=== PATIENT | male | born 1990 | race Two or more races ===

== ENCOUNTER 2018-02-03 08:57 | Emergency (ER) | payer OTHER ==
--- NOTE | 2018-02-03 10:50 | ER Document Report ---
HPI - HPI Patient complains to provider of: Right eye injury Onset: Yesterday Onset/Duration: Sudden Pain Level: 2 Context: 27-year-old noncontact lens wear male had an air hose popped up and hit his right eye yesterday at work. He developed redness and light sensitivity in the eye. Associated Symptoms: None Exacerbated by: Other - Light Relieved by: Denies - ROS ROS below otherwise negative: Yes Systems Reviewed and Negative: Yes All other systems reviewed and negative - EENT EENT: REPORTS: Eye problems - R eye blunt trauma yester Past Medical History - General Information source: Patient - Social History Smoking Status: Never Smoker Frequency of alcohol use: Social Drug Abuse: None Lives with: Family Family History: Reviewed & Not Pertinent Patient has suicidal ideation: No Patient has homicidal ideation: No - Medical History Medical History: Negative Renal/ Medical History: Denies: Hx Peritoneal Dialysis Vertical Provider Document - CONSTITUTIONAL Agree With Documented VS: Yes Exam Limitations: No Limitations - INFECTION CONTROL TRAVEL OUTSIDE OF THE [place] IN LAST 30 DAYS: No - HEENT HEENT: Conjuctival Injection, PERRLA Notes: No foreign body, no fluorescein uptake, mild yellow mucus medial canthi, visual acuity is normal, no periorbital swelling - NECK Neck: Supple - NEURO Level of Consciousness: Awake, Alert - DERM Integumentary: Warm, Dry, No Rash Course - Vital Signs Vital signs: Temp Pulse Resp BP Pulse Ox 96.9 F L 65 16 114/75 99 02/03/18 09:13 02/03/18 09:13 02/03/18 09:13 02/03/18 09:13 02/03/18 09:13 Discharge - Discharge Clinical Impression: Traumatic conjunctivitis Condition: Good Disposition: HOME, SELF-CARE Instructions: Conjunctivitis ([facility]), Eyedrop Use ([facility]) Additional Instructions: Return to the emergency room if symptoms worsen See the eye doctor if persists Eyedrop prescription 1 drop in the right eye 4 times a day. Prescriptions: Polymyxin B Sulf/Trimethoprim [Polytrim Eye Drops] 1 drp OD QID #1 bot Forms: Return to Work Referrals: NEETU MERCHANT MD [ACTIVE STAFF] - Follow up as needed
[2018-02-03 10:54] VITALS: BP 123/80
== END 2018-02-03 10:54 | disposition home or self-care (01) ==
LOC: ER 08:57
DX: S05.91XA Unspecified injury of right eye and orbit, initial encounter (principal); H10.31 Unspecified acute conjunctivitis, right eye; W20.8XXA Other cause of strike by thrown, projected or falling object, initial encounter; Y99.0 Civilian activity done for income or pay
CPT/HCPCS: 99283

== ENCOUNTER 2020-01-16 05:24 | Observation (INO) | payer OTHER ==
[2020-01-16] MEDS ORDERED: ONDANSETRON HCL INJ/PF 4 MG/2 ML SDV IV ONE (05:34)
[2020-01-16] MEDS ORDERED: MORPHINE SULFATE 10 MG/ML INJ IV ONE (05:34)
[2020-01-16] MEDS ORDERED: NORMAL SALINE 1000 ML 1,000 ML IV ONE (05:35)
[2020-01-16 06:07] LABS: HEMATOCRIT 41.5 % (37.9-51.0); HEMOGLOBIN 14.6 g/dL (13.5-17.0); MEAN CORPUSCULAR HEMOGLOBIN 30.1 pg (27.0-33.4); MEAN CORPUSCULAR HGB CONC 35.1 g/dL (32.0-36.0); MEAN CORPUSCULAR VOLUME 86 fl (80-97); PLATELET COUNT 321 10^3/uL (150-450); RED BLOOD COUNT 4.84 10^6/uL (4.35-5.55); RED CELL DISTRIBUTION WIDTH 12.2 % (11.5-14.0); WHITE BLOOD COUNT 16.5 10^3/uL (4.0-10.5)
--- NOTE | 2020-01-16 06:08 | ER Document Report ---
ED GI/ - General Chief Complaint: Abdominal Pain Stated Complaint: LOWER RIGHT ABDOMINAL PAIN/VOMITING Time Seen by Provider: 01/16/20 05:35 Primary Care Provider: LURDES NOVA PA-C [Primary Care Provider] - Follow up as needed Mode of Arrival: Ambulatory Information source: Patient Notes: Otherwise healthy 29-year-old male presenting to the emergency department chief complaint of sudden onset right lower quadrant abdominal pain that began around midnight. Patient reports associated nausea with vomiting x2. Denies any fevers or diarrhea. States he has never had pain like this in before. Denies any history of appendicitis or kidney stones. He states moving around makes the pain worse. TRAVEL OUTSIDE OF THE [place] IN LAST 30 DAYS: No - Related Data Allergies/Adverse Reactions: No Known Allergies Allergy (Verified 02/03/18 08:58) Past Medical History - General Information source: Patient - Social History Smoking Status: Never Smoker Chew tobacco use (# tins/day): No Frequency of alcohol use: Occasional Drug Abuse: None Family History: Reviewed & Not Pertinent Patient has suicidal ideation: No Patient has homicidal ideation: No - Medical History Medical History: Negative Renal/ Medical History: Denies: Hx Peritoneal Dialysis Surgical Hx: Negative - Immunizations Immunizations up to date: Yes Review of Systems - Review of Systems Gastrointestinal: Abdominal pain, Nausea, Vomiting -: Yes All other systems reviewed and negative Physical Exam - Vital signs Vitals: Temp Pulse BP Pulse Ox 97.3 F 83 143/73 H 100 01/16/20 07:01 01/16/20 07:01 01/16/20 07:01 01/16/20 07:01 - Notes Notes: PHYSICAL EXAMINATION: GENERAL: Well-appearing, well-nourished and in no acute distress. HEAD: Atraumatic, normocephalic. EYES: Pupils equal round and reactive to light, extraocular movements intact, sclera anicteric, conjunctiva are normal. ENT: Nares patent, oropharynx clear without exudates. Moist mucous membranes. NECK: Normal range of motion, supple without lymphadenopathy LUNGS: Breath sounds clear to auscultation bilaterally and equal. No wheezes rales or rhonchi. HEART: Regular rate and rhythm without murmurs ABDOMEN: Soft, nondistended abdomen. Tenderness in the right lower quadrant with palpation. Guarding present, rebound tenderness present. Musculoskeletal: Normal range of motion, no pitting or edema. No cyanosis. NEUROLOGICAL: Cranial nerves grossly intact. Normal speech, normal gait. Normal sensory, motor exams PSYCH: Normal mood, normal affect. SKIN: Warm, Dry, normal turgor, no rashes or lesions noted. Course - Re-evaluation Re-evalutation: 01/16/20 07:20 Abdomen/Pelvis CT 01/16/20 06:29 IMPRESSION: 1. Mild periappendiceal edema, suspicious for early acute appendicitis. 2. No bowel obstruction, perforation, or abscess. Patient has an elevated white blood count of 16, mild. Possible early appendicitis on CT, surgery consulted, Dr. Amaro will come see the patient. - Vital Signs Vital signs: Temp Pulse Resp BP Pulse Ox 97.3 F 83 143/73 H 100 01/16/20 07:01 01/16/20 07:01 01/16/20 07:01 01/16/20 07:01 - Laboratory Result Diagrams: 01/16/20 05:47 01/16/20 05:47 Laboratory results interpreted by me: 01/16/20 01/16/20 01/16/20 05:47 05:47 06:00 WBC 16.5 H Seg Neuts % (Manual) 85 H Lymphocytes % (Manual) 6 L Abs Neuts (Manual) 14.0 H Total Protein 8.4 H Urine Ketones TRACE H Discharge - Discharge Clinical Impression: Acute appendicitis Qualifiers: Acute appendicitis type: unspecified acute appendicitis type Qualified Code(s): K35.80 - Unspecified acute appendicitis Leukocytosis Qualifiers: Leukocytosis type: unspecified Qualified Code(s): D72.829 - Elevated white blood cell count, unspecified Condition: Stable Disposition: ADMITTED INPATIENT Admitting Provider: Surgicalist Unit Admitted: Surgical Floor Referrals: LURDES NOVA PA-C [Primary Care Provider] - Follow up as needed
[2020-01-16 06:20] LABS: ALKALINE PHOSPHATASE 92 U/L (38-126); ANION GAP 9 (5-19); ASPARTATE AMINO TRANSFERASE 31 U/L (17-59); BILIRUBIN,DIRECT 0.1 mg/dL (0.0-0.4); BLOOD UREA NITROGEN 18 mg/dL (7-20); CALCIUM 9.8 mg/dL (8.4-10.2); CARBON DIOXIDE 29 mmol/L (22-30); CHLORIDE 103 mmol/L (98-107); GLUCOSE 99 mg/dL (75-110); POTASSIUM 4.1 mmol/L (3.6-5.0); TOTAL PROTEIN 8.4 g/dL (6.3-8.2)
[2020-01-16 06:21] LABS: APPEARANCE,URINE CLEAR; BILIRUBIN,URINE NEGATIVE (NEGATIVE); COLOR,URINE YELLOW; GLUCOSE, URINE NEGATIVE (NEGATIVE); KETONES,URINE TRACE mg/dL (NEGATIVE); LEUKOCYTE ESTERASE,URINE NEGATIVE (NEGATIVE); NITRITE,URINE NEGATIVE (NEGATIVE); PROTEIN,URINE NEGATIVE (NEGATIVE); URINE SPECIFIC GRAVITY 1.021; UROBILINOGEN,URINE NEGATIVE mg/dL (<2.0)
[2020-01-16 06:23] LABS: ABSOLUTE LYMPHOCYTES# (MANUAL) 1.3 10^3/uL (0.5-4.7); BASOPHILS % (MANUAL) 0 % (0-2); EOSINOPHILS % (MANUAL) 1 % (0-6); LYMPHOCYTES % (MANUAL) 6 % (13-45); MONOCYTES % (MANUAL) 6 % (3-13); SEGMENTED NEUTROPHILS % (MAN) 85 % (42-78); TOTAL CELLS COUNTED 100
[2020-01-16 06:24] LABS: PLATELET COMMENT ADEQUATE; RBC MORPHOLOGY COMMENT NORMO-CYTIC/CHROMIC; TOXIC GRANULATION 1+
[2020-01-16] MEDS ORDERED: METHYLPREDNISOLONE INJ 125 MG/2 ML SDV IV ONE (06:49)
[2020-01-16] MEDS ORDERED: FAMOTIDINE INJ/PF 20 MG/2 ML SDV IV ONE (06:49)
[2020-01-16] MEDS ORDERED: DIPHENHYDRAMINE HCL 50 MG/ML VIAL IV ONE (06:49)
--- NOTE | 2020-01-16 07:13 | RADIOLOGY REPORT (SQ) ---
EXAM DESCRIPTION: [facility]: CT ABDOMEN PELVIS WITH IV CONTRAST CLINICAL HISTORY: 29 years Male; RLQ pain; TECHNIQUE: CT of the abdomen and pelvis using intravenous contrast. All CT scans at this facility use dose modulation, iterative reconstruction, and/or weight based dosing when appropriate to reduce radiation dose to as low as reasonably achievable. COMPARISON: None. FINDINGS: Abdomen: Stomach: No significant distention or surrounding edema. Liver:No focal lesions. No intrahepatic ductal distention. Gallbladder:Nondistended Pancreas:Within normal limits Spleen:Within normal limits Right kidney:No hydronephrosis. No focal lesion. Left kidney:No hydronephrosis. No focal lesion. Adrenal glands:Within normal limits Vascular structures:Within normal limits Pelvis: Small bowel:No significant distention. Appendix: Mild adjacent edema. No extraluminal fluid collection or air. 9 mm diameter Colon:No distention or acute pericolonic edema. No free intraperitoneal fluid or air. Bones: No acute bone findings. Bladder: Unremarkable. No pelvic mass or adenopathy. IMPRESSION: 1. Mild periappendiceal edema, suspicious for early acute appendicitis. 2. No bowel obstruction, perforation, or abscess.
[2020-01-16] MEDS ORDERED: CEFAZOLIN 1 GM/D5W RTU 1 GM/50 ML RTUPB IV ONE (07:33)
[2020-01-16] MEDS ORDERED: METRONIDAZOLE 500 MG/NS RTU 500 MG/100 ML RTUPB IV ONE (07:33)
--- NOTE | 2020-01-16 07:36 | PDOC H&P ---
History of Present Illness Admission Date/PCP: LURDES NOVA PA-C History of Present Illness: DYLAN MATOS JR is a 29 year old male Otherwise healthy 29-year-old male presenting to the emergency department chief complaint of sudden onset right lower quadrant abdominal pain that began around midnight. Patient reports associated nausea with vomiting x2. Denies any fevers or diarrhea. States he has never had pain like this in before. Denies any history of appendicitis or kidney stones. He states moving around makes the pain worse. Past Medical History Cardiac Medical History: Denies: None, Atrial Fibrillation, Congestive Heart Failure, Coronary Artery Disease, DVT, Myocardial Infarction, Hyperlipidema, Hypertension, Peripheral Vas cular Disease, Pulmonary Embolism, Heart Murmur, Other Pulmonary Medical History: Denies: None, Asthma, Bronchitis, Chronic Obstructive Pulmonary Disease (COPD), Intubation, Pneumonia, Respiratory Failure, Sleep Apnea, Tuberculosis, Other EENT Medical History: Denies: None, Cataracts, Eyes, Ears, Nose, Throat, Other Neurological Medical History: Denies: None, Hemorrhagic CVA, Ischemic CVA, Migraine, Multiple Sclerosis, Seizures, Other Endocrine Medical History: Denies: None, Diabetes Mellitus Type 1, Diabetes Mellitus Type 2, Gestational Diabetes, Hyperthyroidism, Hypothyroidism, Obesity, Other Renal/ Medical History: Denies: None, Chronic Kidney Disease, End Stage Renal Disease, Nephrolithiasis, Other Malignancy Medical History: Denies: None, Bone Cancer, Brain Cancer, Breast Cancer, Cervical Cancer, Colorectal Cancer, Leukemia, Liver Cancer, Lung Cancer, Lymphoma, Ovarian Cancer, Pancreatic Cancer, Renal (Kidney) Cancer, Skin Cancer, Other GI Medical History: Denies: None, Cirrhosis, Crohn's Disease, Diverticulitis, Gastroesophageal Reflux Disease, Hepatitis, Hiatal Hernia, Peptic Ulcer Disease, Ulcerative Colitis, Other Musculoskeltal Medical History: Denies: None, Arthritis, Fibromyalgia, Gout, Other Skin Medical History: Denies: None, Eczema, Psoriasis, Other Psychiatric Medical History: Denies: None, Alcohol Dependency, Attention Deficit Hyperactivity Disorder, Bipolar Disorder, Dementia, Depression, General Anxiety Disorder, Personality Disorder, Post Traumatic Stress Disorder, Schizoaffective Disorder, Substance Abuse, Tobacco Dependency, Other Traumatic Medical History: Denies: None, Gunshot Wound, Pneumothorax, Stab Wound, Traumatic Brain Injury, Other Hematology: Denies: None, Anemia, Hemophilia, Sickle Cell Disease, Bleeding Tendencies, Heparin Induced Thrombocytopenia, Neutropenia, Other Infectious Medical History: Denies: None, Clostridium Difficile, Hepatitis B, Hepatitis C, HIV, Methicillin-Resistant Staph Aureus, Vancomycin-Resistant Enterococci, Other Past Surgical History Past Surgical History: Denies: None, Appendectomy, Cardiac Catheterization, Carotid Endarterectomy, Cholecystectomy, Colostomy, Coronary Artery Bypass Graft, Coronary Stent, Gastr ic Bypass Surgery, Herniorrhaphy, Hip Replacement, Ileostomy, Internal Defibrillator, Knee Replacement, Orthopedic Surgery, Pacemaker, Renal Transplant, Splenectomy, Thyroidectomy, Tonsillectomy, Valve Replacement, Vascular Surgery, Other Social History Smoking Status: Never Smoker Electronic Cigarette use?: No Family History Family History: Reviewed & Not Pertinent Parental Family History Reviewed: Yes Children Family History Reviewed: NA Sibling(s) Family History Reviewed.: NA Medication/Allergy Home Medications: No Home Medications 01/16/20 Allergies/Adverse Reactions: No Known Allergies Allergy (Verified 02/03/18 08:58) Review of Systems Constitutional: ABSENT: as per HPI, anorexia, chills, fatigue, fever(s), headache(s), night sweats, weakness, weight gain, weight loss, other Eyes: ABSENT: as per HPI, visual disturbances, other Ears: ABSENT: as per HPI, hearing changes, other Nose, Mouth, and Throat: ABSENT: as per HPI, headache(s), mouth pain, sore throat, vertigo, other Breasts: ABSENT: as per HPI, other Cardiovascular: ABSENT: as per HPI, chest pain, dyspnea on exertion, edema, orthropnea, palpitations, other Respiratory: ABSENT: as per HPI, cough, dyspnea, hemoptysis, sputum, other Gastrointestinal: PRESENT: abdominal pain, nausea, vomiting Genitourinary: ABSENT: as per HPI, difficulty urinating, dysuria, hematuria, nocturia, other Musculoskeletal: ABSENT: as per HPI, back pain, deformity, joint swelling, muscle weakness, other Integumentary: ABSENT: as per HPI, diaphoresis, erythema, lesions, pruritus, rash, wounds, other Neurological: ABSENT: as per HPI, abnormal gait, abnormal movements, abnormal speech, confusion, convulsions, dizziness, focal weakness, frequent falls, lack of coordination, memory loss, numbness, paresthesias, restless legs, syncope, tingling, tremor(s), vertigo, weakness, other Psychiatric: ABSENT: as per HPI, anxiety, depression, hallucinations, homidical ideation, suicidal ideation, other Endocrine: ABSENT: as per HPI, cold intolerance, flushing, heat intolerance, menstrual abnormalities, polydipsia, polyphagia, polyuria, other Hematologic/Lymphatic: ABSENT: as per HPI, easy bleeding, easy bruising, lymphadenopathy, other Allergic/Immunologic: ABSENT: as per HPI, seasonal rhinorrhea, other Physical Exam Vital Signs: Temp Pulse Resp BP Pulse Ox 97.3 F 83 143/73 H 100 01/16/20 07:01 01/16/20 07:01 01/16/20 07:01 01/16/20 07:01 Intake & Output 01/15/20 01/16/20 01/17/20 06:59 06:59 06:59 Intake Total 1000 Balance 1000 Weight 79.8 kg General appearance: PRESENT: mild distress Head exam: PRESENT: normocephalic Eye exam: PRESENT: EOMI Ear exam: PRESENT: normal external ear exam Mouth exam: PRESENT: dry mucosa Neck exam: PRESENT: full ROM Respiratory exam: PRESENT: clear to auscultation [place] Cardiovascular exam: PRESENT: RRR Pulses: PRESENT: normal radial pulses, normal femoral pulses Vascular exam: PRESENT: normal capillary refill Breast: PRESENT: Normal GI/Abdominal exam: PRESENT: tenderness - rlq Rectal exam: PRESENT: deferred Extremities exam: PRESENT: full ROM Musculoskeletal exam: PRESENT: ambulatory Neurological exam: PRESENT: alert, awake, oriented to person, oriented to place Psychiatric exam: PRESENT: appropriate affect Skin exam: PRESENT: dry Results Laboratory Results: 01/16/20 05:47 01/16/20 05:47 01/16/20 01/16/20 01/16/20 05:47 05:47 06:00 WBC 16.5 H RBC 4.84 Hgb 14.6 Hct 41.5 MCV 86 MCH 30.1 MCHC 35.1 RDW 12.2 Plt Count 321 Seg Neutrophils % Not Reportable Sodium 140.7 Potassium 4.1 Chloride 103 Carbon Dioxide 29 Anion Gap 9 BUN 18 Creatinine 0.74 Est GFR ( Amer) > 60 Glucose 99 Calcium 9.8 Total Bilirubin 1.0 AST 31 Alkaline Phosphatase 92 Total Protein 8.4 H Albumin 5.0 Lipase 82.3 Urine Color YELLOW Urine Appearance CLEAR Urine pH 6.0 Ur Specific [place] 1.021 Urine Protein NEGATIVE Urine Glucose (UA) NEGATIVE Urine Ketones TRACE H Urine Blood NEGATIVE Urine Nitrite NEGATIVE Ur Leukocyte Esterase NEGATIVE Urine WBC (Auto) 1 Urine RBC (Auto) 1 Impressions: Abdomen/Pelvis CT 01/16/20 06:29 IMPRESSION: 1. Mild periappendiceal edema, suspicious for early acute appendicitis. 2. No bowel obstruction, perforation, or abscess. Assessment & Plan - Diagnosis (1) Acute appendicitis Qualifiers: Acute appendicitis type: unspecified acute appendicitis type Qualified Code(s): K35.80 - Unspecified acute appendicitis - Plan Summary Plan Summary: impression, acute appendicitis plan to or for laparoscopic appendectomy.
[2020-01-16] MEDS ORDERED: DEXAMETHASONE SOD PHOSPHATE INJ 4 MG/1 ML VIAL ONE (08:43)
[2020-01-16] MEDS ORDERED: ONDANSETRON HCL INJ/PF 4 MG/2 ML SDV ONE (08:43)
[2020-01-16] MEDS ORDERED: MIDAZOLAM 2 MG/2 ML INJ ONE (08:43)
[2020-01-16] MEDS ORDERED: FENTANYL CITRATE INJ/PF 100 MCG/2 ML AMPUL ONE (08:43)
[2020-01-16] MEDS ORDERED: PROPOFOL INJ 200 MG/20 ML VIAL IV ONE (08:44)
[2020-01-16] MEDS ORDERED: BUPIVACAINE HCL 0.5%-EPI 1:200000 INJ/PF 30 ML VIAL ONE (08:49)
--- NOTE | 2020-01-16 12:54 | Operative Report ---
Nonrecallable Operative Report DATE OF SURGERY: 01/16/20 PREOPERATIVE DIAGNOSIS: acute appendicitis POSTOPERATIVE DIAGNOSIS: acute appendicitis OPERATION: laparoscopic appendectomy SURGEON: KEVEN RODRIGUEZ ANESTHESIA: GA TISSUE REMOVED OR ALTERED: appendix COMPLICATIONS: none ESTIMATED BLOOD LOSS: 10cc INTRAOPERATIVE FINDINGS: acute appendicitis PROCEDURE: The patient was brought to the operating awake alert stable condition placed in the operative table supine position induced under general anesthesia intubated. Covidien 19 precautions were being observed. After appropriate timeout site verification a varies needle was placed into the umbilicus and the abdomen was insufflated with 6 L of CO2 gas. Infraumbilical 5 mm incision was made with a 15 blade and a 5 mm port placed into that incision. Intra-abdominal visualization revealed no evidence of a Veress needle or trocar injury. A left lower quadrant 10 mm port placed under direct vision and a suprapubic 5 mm port under direct vision. The appendix was then visualized and was noted to be acutely separative was placed on traction. The mesoappendix was handled with one firing of the Endo NIKOLE stapler with a vascular load and then we came across the base of the appendix on the cecum with one firing the Endo NIKOLE stapler with a blue load. The staple line was hemostatic. The appendix was placed in an Endobag and removed through the left lower quadrant port site. The pelvis and right lower quadrant irrigated normal saline suctioned dry hemostasis noted to be intact the ports were removed the fascial defect in the left lower quadrant was closed with 0 Vicryl and all 3 skin incisions were closed with intracuticular 4-0 Biosyn Steri-Strips completed the procedure. Estimated blood loss was less than 10 cc sponge needle counts correct x2. The patient was then transferred back to the positive pressure room for extub ation.
--- NOTE | 2020-01-16 12:58 | Discharge Summary ---
Discharge Summary (SDC) - Discharge Final Diagnosis: acute appendicitis Date of Surgery: 01/16/20 Discharge Date: 01/16/20 Condition: Good Prescriptions: Hydrocodone/Acetaminophen [[place] 10-325 mg Tablet] 1 tab PO Q6HP PRN #15 tablet PRN Reason: Referrals: LURDES NOVA PA-C [Primary Care Provider] - Follow up as needed Discharge Diet: As Tolerated Discharge Activity: Activity As Tolerated Report the Following to Your Physician Immediately: Shortness of Breath, Nausea, Vomiting, Increase in Pain, Unusual Bleeding
[2020-01-16] MEDS: HYDROCODONE/ACETAMINOPHEN 5-325 MG TABLET ONE (14:13)
[2020-01-16] MEDS ORDERED: SUCCINYLCHOLINE CHLORIDE INJ 200 MG/10 ML VIAL ONE (14:19)
[2020-01-16] MEDS ORDERED: ROCURONIUM BROMIDE INJ 50 MG/5 ML VIAL IV ONE (14:19)
[2020-01-16 15:50] VITALS: BP 125/77
== END 2020-01-16 15:10 | disposition home or self-care (01) ==
LOC: ER 05:24 → EH 07:41 → INTOOBSV 07:41
PROVIDERS: ATTEND Surgery
DX: K35.30 Acute appendicitis with localized peritonitis, without perforation or gangrene (principal)
CPT/HCPCS: 44970; 36415; 83690; 85025; 80053; 81001; 88304 ×2; 74177; J2250; J3490 ×3; J0690; J1100; J1200; J3010; J2930; J2270; J0330; J2405; J7030; J2704; S0028; 96361; 96374; 96375; 99285